=== PATIENT | female | born 1975 | race Caucasian/White ===

== ENCOUNTER 2020-08-14 20:55 | Inpatient (IN) ==
[2020-08-14] MEDS ORDERED: IOPAMIDOL 100 ML BOTTLE IV ONE (20:56)
[2020-08-14] MEDS ORDERED: 0.9 % SODIUM CHLORIDE 1,000 ML IV ONE (21:10)
[2020-08-14] MEDS ORDERED: ONDANSETRON 4 MG/2 ML VIAL IV ONE (21:10)
[2020-08-14] MEDS ORDERED: HYDROmorphone 0.5 MG/0.5 ML SYRINGE IV PRN (21:10)
--- NOTE | 2020-08-14 21:20 | Emergency Department Note ---
Abdominal Pain HPI General Chief Complaint: Abdominal Pain Stated Complaint: abdominal pain and coughing up blood Time Seen by Provider: 08/14/20 21:00 Mode of arrival: ambulatory Limitations: no limitations History of Present Illness HPI Narrative: Narrative: Patient is a 45-year-old female that comes into the emergency department today w ith complaint of feeling shortness of breath and coughing small amounts of blood-tinged sputum. She recently had laparoscopic cholecystectomy 2 days ago here at [facility]. She was discharged home yesterday, and reports that she has been feeling dizzy since the surgery, plugged ears, and has had abdominal pains. She is eating a clear liquid diet, but reports her appetite is decreased. She is drinking fluids. She has not had any nausea or vomiting. She denies any melena or hematochezia. She has not had a bowel movement in 2 days. She has not had any fevers or chills. She has not noticed any chest pains. Related Data Home Medications Medication Instructions Recorded Confirmed buspirone 5 mg PO DAILY 02/19/19 08/12/20 clonidine HCl 0.2 mg PO BID 02/19/19 08/12/20 sertraline 200 mg PO HS 02/19/19 08/12/20 aripiprazole 5 mg PO DAILY 10/31/19 08/12/20 estradiol 0.2 mg PO DAILY 08/12/20 08/12/20 omeprazole 20 mg capsule,delayed 20 mg PO QDAY cap 08/12/20 08/12/20 release ondansetron 4 mg PO Q4HP PRN 08/12/20 08/12/20 Previous Rx's Medication Instructions Recorded fexofenadine 180 mg PO DAILYP PRN #30 tab 10/31/19 acetaminophen [Tylenol] 650 mg PO Q6HP #30 tab 08/13/20 oxycodone 5 - 10 mg PO Q4HP PRN #15 tab 08/13/20 Allergies Allergy/AdvReac Type Severity Reaction Status Date / Time No Known Drug Allergies Allergy Verified 08/12/20 19:13 Review of Systems ROS ROS Narrative: Narrative: Constitutional: Denies fever and chills Eyes: Denies vision change ENT ED: Denies ear pain and throat pain Cardiovascular: Reports dyspnea on exertion; Denies chest pain, palpitations, edema and syncope Respiratory: Reports as per HPI, shortness of breath, cough and hemoptysis; Denies wheezes Gastrointestinal: Reports as per HPI, abdominal pain and constipation; Denies nausea, vomiting, hematochezia and melena Genitourinary: Denies dysuria and frequency Musculoskeletal: Denies back pain and joint swelling Integumentary: Denies rash, lesions and change in color Neurological: Reports dizziness; Denies headache, weakness, numbness, paresthesias and confusion Psychiatric: Denies anxiety and depression Endocrine: Denies fatigue and heat or cold intolerance Hematological/Lymphatic: Denies easy bleeding and easy bruising PFSH Narrative Patient History Narrative: Narrative: Medical/Surgical/Family History All Active Problems (Updated 08/12/20 @ 11:09 by Garth Tyson PA-C) Acute cholecystitis due to biliary calculus (Acute) Chronic pain (Acute) Lumbar radiculopathy (Acute) Acute sinusitis (Acute) Medication side effects (Acute) Acute anxiety (Acute) Joint pain (Acute) Nausea & vomiting (Acute) Otitis external (Acute) Upper respiratory infection (Acute) Migraine (Acute) Suicidal ideation (Acute) Serous otitis media (Acute) Gastroenteritis (Acute) Abdominal pain (Acute) Cholelithiasis (Acute) Medical History (Updated 08/12/20 @ 11:09 by Garth Tyson PA-C) Acute sinusitis (Acute) Chronic pain (Acute) Lumbar radiculopathy (Acute) Surgical History History of back surgery (Acute) 2015 History of (Acute) x2 History of carpal tunnel release (Acute) Left History of dilation and curettage (Acute) x3 History of elbow surgery (Acute) Left History of hysterectomy (Acute) History of surgery (Acute) Eustachian Tube placement x 10 History of tonsillectomy (Acute) Family History Mother Diabetes Hypertension Grandmother Diabetes Hypertension Aunt Diabetes Grandfather Heart disease Lung cancer Hypertension Father Heart disease Hypertension Social History Smoking Status: Never smoker Alcohol Intake Frequency: holiday/special occasion only Exam Narrative Narrative: Narrative: General Limitations: no limitations General appearance: Present alert and in no apparent distress Eye Eye: Present normal appearance, PERRL and EOMI; Absent scleral icterus, con junctival injection and nystagmus ENT ENT: Present normal oropharynx and mucous membranes moist; Absent nasal congestion Neck Neck: Present normal inspection, full ROM and trachea midline; Absent tenderness , lymphadenopathy and thyromegaly Chest Chest: Present symmetric chest wall rise Respiratory Respiratory: Present normal lung sounds bilaterally; Absent respiratory distress, rales/crackles, wheezes, stridor, accessory muscle use and prolonged expiratory phase Cardiovascular Cardiovascular: Present normal rhythm, tachycardia, +S1 and +S2; Absent systolic murmur and diastolic murmur Adbominal Abdominal: Present soft, tenderness (Mild diffuse abdominal tenderness), hypoactive bowel sounds and other (4 laparoscopic surgical sites are covered with gauze dressing. Gauze dressings are dry and intact.); Absent distention, rebound and rigidity Extremities Extremities: Present normal inspection, full ROM and normal capillary refill; Absent pedal edema, calf tenderness, cyanosis and clubbing Back Back: Present normal inspection and full ROM; Absent CVA tenderness (R), CVA tenderness (L) and spinous process tenderness Neurological Neurological: Present alert, oriented X3 and CN II-XII intact; Absent motor sensory deficit Psychiatric Psychiatric: Present normal affect and normal mood Skin Skin: Present warm, dry and normal color Course Reevaluation(s) Reevaluation #1: 2128 - Patient was hypoxic with oxygen saturation 70% on room air. She is currently receiving 2 L of O2 via nasal cannula, and oxygen saturation 96%. Patient is tachycardic. Currently proceeded with a CT angiogram of chest. Ordered 1 L normal saline. Dilaudid for pain management and ondansetron for nausea. Currently awaiting labs and CT results. 2156 -patient currently sitting in room T3. She is in no distress. Receiving 1 L normal saline IV. Currently awaiting labs results as well as CTA of chest. Patient currently has 2 L of O2 via nasal cannula and oxygen saturation is 97%. Report given to attending ED physician today, Dr. Barragan. Dr. Barragan will assume care at 2200 due to shift change. Vital Signs Vital signs: Vital Signs Temperature 99.0 F 08/14/20 20:56 Pulse Rate 101 H 08/14/20 20:56 Respiratory Rate 18 08/14/20 20:56 Blood Pressure 122/86 08/14/20 20:56 Pulse Oximetry (%) 78 L 08/14/20 20:56 Temperature 99.0 F 08/14/20 20:56 Pulse Rate 100 H 08/14/20 21:04 Respiratory Rate 18 08/14/20 20:56 Blood Pressure 122/86 08/14/20 21:04 Pulse Oximetry (%) 94 08/14/20 21:04 MDM MDM Narrative Medical decision making narrative: Narrative: Lab Data Result diagrams: 08/14/20 21:20 08/14/20 21:20 EKG Data EKG #1: EKG attestation: Yes I reviewed and interpreted this EKG. and Yes There are no EKG findings of acute coronary syndrome EKG shows normal: sinus rhythm Rate: normal Discharge Plan Patient/Caregiver Discharge Instructions Pt seen by SLIP BOX CHANGER/PA only: No Patient Disposition: Still a Patient Follow up with: Jo-Ann Lin ARNP [Primary Care Provider] - Prescriptions: No Action omeprazole 20 mg capsule,delayed release(DR/EC) 20 mg PO QDAY RF: 0 buspirone 5 MG tablet 5 mg PO DAILY RF: 0 clonidine HCl 0.2 MG tablet 0.2 mg PO BID RF: 0 sertraline 50 MG tablet 200 mg PO HS RF: 0 aripiprazole 5 MG tablet 5 mg PO DAILY RF: 0 fexofenadine 180 MG tablet 180 mg PO DAILYP PRN (Reason: Congestion) Qty: 30 RF: 0 estradiol 0.2 mg PO DAILY RF: 0 ondansetron 4 mg tablet,disintegrating 4 mg PO Q4HP PRN (Reason: Nausea) RF: 0 acetaminophen [Tylenol] 325 mg Tablet 650 mg PO Q6HP Qty: 30 RF: 0 oxycodone 5 mg Tablet 5 - 10 mg PO Q4HP PRN (Reason: Per Pain Protocol) Qty: 15 RF: 0
--- NOTE | 2020-08-14 22:08 | Emergency Department Note ---
HPI General Chief complaint: Abdominal Pain Stated complaint: abdominal pain and coughing up blood Time Seen by Provider: 08/14/20 21:00 Source: patient Mode of arrival: ambulatory Limitations: no limitations History of Present Illness HPI Narrative: Narrative: Related Data Home Medications Medication Instructions Recorded Confirmed buspirone 5 mg PO DAILY 02/19/19 08/12/20 clonidine HCl 0.2 mg PO BID 02/19/19 08/12/20 sertraline 200 mg PO HS 02/19/19 08/12/20 aripiprazole 5 mg PO DAILY 10/31/19 08/12/20 estradiol 0.2 mg PO DAILY 08/12/20 08/12/20 omeprazole 20 mg capsule,delayed 20 mg PO QDAY cap 08/12/20 08/12/20 release ondansetron 4 mg PO Q4HP PRN 08/12/20 08/12/20 Previous Rx's Medication Instructions Recorded fexofenadine 180 mg PO DAILYP PRN #30 tab 10/31/19 acetaminophen [Tylenol] 650 mg PO Q6HP #30 tab 08/13/20 oxycodone 5 - 10 mg PO Q4HP PRN #15 tab 08/13/20 Allergies Allergy/AdvReac Type Severity Reaction Status Date / Time No Known Drug Allergies Allergy Verified 08/12/20 19:13 Review of Systems ROS ROS Narrative: Narrative: Cardiovascular: Reports dyspnea on exertion; Denies chest pain, palpitations, edema and syncope Respiratory: Reports as per HPI, shortness of breath, cough and hemoptysis; Denies wheezes Gastrointestinal: Reports as per HPI, abdominal pain and constipation; Denies nausea, vomiting, hematochezia and melena Neurological: Reports dizziness; Denies headache, weakness, numbness, paresthesias and confusion [facility] Narrative Patient History Narrative: Narrative: Medical/Surgical/Family History All Active Problems (Updated 08/15/20 @ 02:07 by Hemanth Barragan MD) Pneumonia (Acute) Hypoxia (Acute) Acute cholecystitis due to biliary calculus (Acute) Chronic pain (Acute) Lumbar radiculopathy (Acute) Acute sinusitis (Acute) Medication side effects (Acute) Acute anxiety (Acute) Joint pain (Acute) Nausea & vomiting (Acute) Otitis external (Acute) Upper respiratory infection (Acute) Migraine (Acute) Suicidal ideation (Acute) Serous otitis media (Acute) Gastroenteritis (Acute) Abdominal pain (Acute) Cholelithiasis (Acute) Medical History (Updated 08/15/20 @ 02:07 by Hemanth Barragan MD) Acute sinusitis (Acute) Chronic pain (Acute) Lumbar radiculopathy (Acute) Surgical History History of back surgery (Acute) 2015 History of (Acute) x2 History of carpal tunnel release (Acute) Left History of dilation and curettage (Acute) x3 History of elbow surgery (Acute) Left History of hysterectomy (Acute) History of surgery (Acute) Eustachian Tube placement x 10 History of tonsillectomy (Acute) Family History Mother Diabetes Hypertension Grandmother Diabetes Hypertension Aunt Diabetes Grandfather Heart disease Lung cancer Hypertension Father Heart disease Hypertension Social History Smoking Status: Never smoker Alcohol Intake Frequency: holiday/special occasion only Exam Narrative Narrative: Narrative: General Limitations: no limitations General appearance: Present alert and in no apparent distress Course Reevaluation(s) Reevaluation #1: The patient is inherited at change of shift with labs and imaging pending. In short, recent cholecystectomy now coming in with upper abdominal pain, hemoptysis, and hypoxia. CT to rule out PE as well as other appropriate labs. And this vital signs normalized, patient most likely will need to be admitted. Pneumonia is also in the differential. Severe atelectasis is considered Time: 22:07 Reevaluation #2: With all the results back, I spoke to the hospitalist, Dr. Pond. He says he prefers to give the patient cefepime and vancomycin but agreed to admit. Time: 02:06 Vital Signs Vital signs: Vital Signs Temperature 99.0 F 08/14/20 20:56 Pulse Rate 101 H 08/14/20 20:56 Respiratory Rate 18 08/14/20 20:56 Blood Pressure 122/86 08/14/20 20:56 Pulse Oximetry (%) 78 L 08/14/20 20:56 Temperature 100.7 F H 08/15/20 01:55 Pulse Rate 100 H 08/15/20 01:46 Respiratory Rate 18 08/14/20 20:56 Blood Pressure 160/98 08/15/20 01:46 Pulse Oximetry (%) 92 08/15/20 01:46 MDM MDM Narrative Medical decision making narrative: Narrative: Lab Data Result diagrams: 08/14/20 21:20 08/14/20 21:20 Labs: Lab Results 08/14/20 08/14/20 08/14/20 Range/Units 21:20 21:20 21:20 WBC 11.5 H (4.50-11.00) K/mcL RBC 3.92 (3.59-5.38) M/mcL Hgb 9.6 L (11.2-15.7) g/dL Hct 31.9 L (34.1-44.9) % MCV 81.4 (80.0-100.0) fL MCH 24.5 L (26.0-34.0) pg MCHC 30.1 L (31.0-36.0) g/dL RDW 14.3 (11.5-14.5) % Plt Count 299 (140-440) K/mcL MPV 9.8 (7.4-10.4) fL Gran % 73.5 (38.0-78.0) % Lymph % (Auto) 18.6 (15.5-49.0) % Dane % (Auto) 7.8 (1.0-12.0) % Eos % (Auto) 0 (0.0-7.0) % Baso % (Auto) 0.1 (0.0-2.0) % Gran # 8.44 H (1.80-8.00) K/mcL Lymph # (Auto) 2.13 (1.50-4.80) K/mcL Dane # (Auto) 0.89 (0.10-0.90) K/mcL Eos # (Auto) 0 (0.00-0.70) K/mcL Baso # (Auto) 0.01 (0.00-0.30) K/mcL VBG Lactic Acid 1.1 (0.5-2.0) mmol/L Sodium 135 (133-145) mmol/L Potassium 4.6 (3.3-5.1) mmol/L Chloride 93 L (96-108) mmol/L Carbon Dioxide 30 (22-30) mmol/L Anion Gap 12.0 (8-16) BUN 22 H (6-20) mg/dl Creatinine 1.0 (0.6-1.1) mg/dl GFR Calculation 67 Glucose 128 H (70-105) mg/dL Calcium 8.5 L (8.6-10.4) mg/dl Total Bilirubin 0.3 (0.0-1.0) mg/dL AST 38 H (0-37) U/l ALT 50 H (0-40) U/l Alkaline Phosphatase 87 (39-117) U/L Total Protein 7.2 (5.9-8.4) gm/dL Albumin 3.9 (3.2-5.2) gm/dL Globulin 3.3 (2.2-3.7) gm/dL Albumin/Globulin Ratio 1.2 (1.0-2.3) Discharge Plan Patient/Caregiver Discharge Instructions Pt seen by YOUTH SERVICES SPECIALIST/PA only: No Clinical Impression: Pneumonia, Hypoxia Patient Disposition: Xfer As Inpt ([facility]) Follow up with: Jo-Ann Lin ARNP [Primary Care Provider] - Prescriptions: No Action omeprazole 20 mg capsule,delayed release(DR/EC) 20 mg PO QDAY RF: 0 buspirone 5 MG tablet 5 mg PO DAILY RF: 0 clonidine HCl 0.2 MG tablet 0.2 mg PO BID RF: 0 sertraline 50 MG tablet 200 mg PO HS RF: 0 aripiprazole 5 MG tablet 5 mg PO DAILY RF: 0 fexofenadine 180 MG tablet 180 mg PO DAILYP PRN (Reason: Congestion) Qty: 30 RF: 0 estradiol 0.2 mg PO DAILY RF: 0 ondansetron 4 mg tablet,disintegrating 4 mg PO Q4HP PRN (Reason: Nausea) RF: 0 acetaminophen [Tylenol] 325 mg Tablet 650 mg PO Q6HP Qty: 30 RF: 0 oxycodone 5 mg Tablet 5 - 10 mg PO Q4HP PRN (Reason: Per Pain Protocol) Qty: 15 RF: 0
[2020-08-14 22:44] LABS: Basophils # (Auto) 0.01 K/mcL (0.00-0.30); Basophils % (Auto) 0.1 % (0.0-2.0); Eosinophils # (Auto) 0 K/mcL (0.00-0.70); Eosinophils % (Auto) 0 % (0.0-7.0); Granulocytes % (Auto) 73.5 % (38.0-78.0); Hematocrit 31.9 % (34.1-44.9); Hemoglobin 9.6 g/dL (11.2-15.7); Lymphocytes # (Auto) 2.13 K/mcL (1.50-4.80); Lymphocytes % (Auto) 18.6 % (15.5-49.0); Mean Cell Volume 81.4 fL (80.0-100.0); Mean Corpuscular HGB Conc 30.1 g/dL (31.0-36.0); Mean Platelet Volume 9.8 fL (7.4-10.4); Monocytes # (Auto) 0.89 K/mcL (0.10-0.90); Monocytes % (Auto) 7.8 % (1.0-12.0); Platelet Count 299 K/mcL (140-440); RBC 3.92 M/mcL (3.59-5.38); Red Cell Distribution Width 14.3 % (11.5-14.5); WBC 11.5 K/mcL (4.50-11.00)
[2020-08-14 23:03] LABS: ALT/SGPT 50 U/l (0-40); AST/SGOT 38 U/l (0-37); Albumin 3.9 gm/dL (3.2-5.2); Albumin/Globulin Ratio 1.2 (1.0-2.3); Alkaline Phosphatase 87 U/L (39-117); Bilirubin,Total 0.3 mg/dL (0.0-1.0); Blood Urea Nitrogen 22 mg/dl (6-20); Calcium 8.5 mg/dl (8.6-10.4); Carbon Dioxide 30 mmol/L (22-30); Globulin 3.3 gm/dL (2.2-3.7); Glomerular Filtration Rate 67; Glucose 128 mg/dL (70-105)
[2020-08-14 23:13] LABS: Chloride 93 mmol/L (96-108)
[2020-08-15] MEDS ORDERED: NALOXONE HCL 0.4 MG/ML VIAL IV ONE (00:07)
[2020-08-15] MEDS ORDERED: VANCOMYCIN PER PHARMACY IV ONE (02:04)
[2020-08-15] MEDS ORDERED: CEFEPIME 2 GM VIAL IV ONE (02:04)
[2020-08-15] MEDS ORDERED: ACETAMINOPHEN 325 MG TABLET PO PRN ×2 (02:08→08:19)
[2020-08-15] MEDS ORDERED: ONDANSETRON 4 MG/2 ML VIAL IV PRN ×3 (02:08→08:19)
[2020-08-15] MEDS ORDERED: VANCOMYCIN 1,000 MG in 0.9 % SODIUM CHLORIDE 250 ML IV ONE (02:13)
[2020-08-15] MEDS ORDERED: 0.9 % SODIUM CHLORIDE 1,000 ML IV SCH (02:15)
[2020-08-15] MEDS ORDERED: VANCOMYCIN PER PHARMACY IV SCH ×2 (08:06→08:19)
[2020-08-15] MEDS ORDERED: FEXOFENADINE 180 MG TABLET PO PRN ×2 (08:07→08:19)
[2020-08-15] MEDS ORDERED: oxyCODONE HCL 5 MG TABLET PO PRN ×2 (08:07→08:19)
[2020-08-15] MEDS ORDERED: guaiFENesin/DEXTROMETHORPHAN ORAL SOL PO PRN ×2 (08:08→08:19)
--- NOTE | 2020-08-15 08:29 | Internal Med History&Physical ---
HPI History of Present Illness Patient information: Note initiated : 08/15/20 at 8:13 am Service Date, if different from initiated Date: [] Patient: Nicole Lipscomb 45 y/o F admitted on 08/15/20 for abdominal pain and coughing up blood. Chief Complaint: [] History of present illness: Ms. Lipscomb is a 45 year old F with a history of hypertension and anxiety who presented to the ER due to shortness of breath for 2 to 3 days. As per patient, patient had a cholecystitis for which she underwent cholecystectomy on August 12, 2020. She stayed in the hospital for 3 days and then was discharged home. 2 to 3 days ago patient started to have shortness of breath associated with cough with some amount of sputum. She does not know the color of the sputum but she noticed some blood in the sputum. She also complains of mild nausea, fever and chills sometimes. Otherwise she denies headache, dizziness, chest pain, abdominal pain, or dysuria. In the ER, imaging showed pneumonia. 1 dose of cefepime and vancomycin were given in the ER. Review of Systems All systems: reviewed and no additional remarkable complaints except as stated PFSH PFSH All Active Problems Pneumonia (Acute) Hypoxia (Acute) Acute cholecystitis due to biliary calculus (Acute) Chronic pain (Acute) Lumbar radiculopathy (Acute) Acute sinusitis (Acute) Medication side effects (Acute) Acute anxiety (Acute) Joint pain (Acute) Nausea & vomiting (Acute) Otitis external (Acute) Upper respiratory infection (Acute) Migraine (Acute) Suicidal ideation (Acute) Serous otitis media (Acute) Gastroenteritis (Acute) Abdominal pain (Acute) Cholelithiasis (Acute) Medical History Acute sinusitis (Acute) Chronic pain (Acute) Lumbar radiculopathy (Acute) Surgical History History of back surgery (Acute) 2014 History of (Acute) x2 History of carpal tunnel release (Acute) Left History of dilation and curettage (Acute) x3 History of elbow surgery (Acute) Left History of hysterectomy (Acute) History of surgery (Acute) Eustachian Tube placement x 10 History of tonsillectomy (Acute) Family History Mother Diabetes Hypertension Grandmother Diabetes Hypertension Aunt Diabetes Grandfather Heart disease Lung cancer Hypertension Father Heart disease Hypertension Social History smoking status: Never smoker alcohol intake frequency: holiday/special occasion only MEDS/ALLERGIES Home Medications and Allergies Home Medications Medication Instructions Recorded Confirmed Type buspirone 5 mg PO DAILY 02/19/19 08/15/20 History clonidine HCl 0.2 mg PO BID 02/19/19 08/15/20 History aripiprazole 5 mg PO DAILY 10/31/19 08/15/20 History fexofenadine 180 mg PO DAILYP PRN #30 tab 10/31/19 08/15/20 Rx estradiol 0.2 mg PO DAILY 08/12/20 08/15/20 History omeprazole 20 mg capsule,delayed 20 mg PO QDAY cap 08/12/20 08/15/20 History release ondansetron 4 mg PO Q4HP PRN 08/12/20 08/15/20 History acetaminophen [Tylenol] 650 mg PO Q6HP #30 tab 08/13/20 08/15/20 Rx oxycodone 5 - 10 mg PO Q4HP PRN #15 tab 08/13/20 08/15/20 Rx Allergies Allergy/AdvReac Type Severity Reaction Status Date / Time No Known Drug Allergies Allergy Verified 08/12/20 19:13 EXAM Constitutional Vitals: Temp Pulse Resp BP Pulse Ox 98.7 F 103 H 22 151/97 97 08/15/20 07:25 08/15/20 07:25 08/15/20 07:25 08/15/20 07:25 08/15/20 07:25 Additional findings Additional findings: General - No acute distress Eyes - PERRLA, EOM intact ENT no rhinorrhea, no noticeable or palpable swelling, no redness or rash around throat or on face Neck supple, no JVD, no thyromegaly Respiratory: Lungs -coarse BS, no use of accessary muscles. Cardiovascular - RRR no m/r/g, GI - Normal bowel sounds, no distended, soft. Extremeties - No edema, cyanosis or clubbing Hemo/lymphatic/immune no lymphadenopathy Neurological Alert and oriented x 3, no focal neurological deficits. Psychiatry flat affect DATA Data Completed and Pending Labs: Labs from last 24 hours 08/14/20 08/14/20 08/14/20 21:20 21:20 21:20 WBC 11.5 H RBC 3.92 Hgb 9.6 L Hct 31.9 L MCV 81.4 MCH 24.5 L MCHC 30.1 L RDW 14.3 Plt Count 299 MPV 9.8 Gran % 73.5 Lymph % (Auto) 18.6 [place]erry % (Auto) 7.8 Eos % (Auto) 0 Baso % (Auto) 0.1 Gran # 8.44 H Lymph # (Auto) 2.13 [place] # (Auto) 0.89 Eos # (Auto) 0 Baso # (Auto) 0.01 VBG Lactic Acid 1.1 Sodium 135 Potassium 4.6 Chloride 93 L Carbon Dioxide 30 Anion Gap 12.0 BUN 22 H Creatinine 1.0 GFR Calculation 67 Glucose 128 H Calcium 8.5 L Total Bilirubin 0.3 AST 38 H ALT 50 H Alkaline Phosphatase 87 Total Protein 7.2 Albumin 3.9 Globulin 3.3 Albumin/Globulin Ratio 1.2 A/P Narrative A/P Narrative: 1. Acute hypoxic respiratory failure Pulse ox Oxygen therapy to keep oxygen saturations greater than 92%. 2. Pneumonia, HCA? CT of the chest showed pneumonia and negative for PE Last week she was hospitalized in the hospital for cholecystitis and stayed in the hospital for 3 days. Blood culture Sputum culture MRSA screen COVID-19 PCR negative Cefepime 2 g every 8 hours Vancomycin, dosing by pharmacy 3. Acute cholecystitis, s/p Laparoscopic cholecystectomy by Dr. Choi on 08/12/2020 Surgical site no infection sign 4. Elevation of liver enzymes Could result from previous cholecystitis and cholecystectomy Repeat her liver function in morning 5. HTN Continue clonidine 6. Anxiety Continue aripirazole 5 mg daily, bisoprolol 5 mg daily, clonidine 0.2 mg twice daily, fexofenadine 180 mg daily as needed and oxycodone (she is on 5 to 10 mg of every 4 hours as needed. I decreased it to 5 mg every 6 hours as needed). I feel that medications are too much but patient would like to have them. closely monitor 7. DVT prophylaxis: SCD. No pharmacological DVT prophylaxis now due to hemoptysis. 8. CODE STATUS: [employer] Spent With Patient Time: Total time spent is greater than 50% in coordination of care (as documented) at patient's floor/unit and/or counseling patient: QUALITY VTE Deep Vein Thrombosis/Pulmonary Embolism Present on Admission: No
[2020-08-15] MEDS ORDERED: CEFEPIME 2 GM VIAL IV SCH ×2 (09:00)
[2020-08-15] MEDS ORDERED: ESTRADIOL PO SCH (09:00)
[2020-08-15] MEDS ORDERED: VANCOMYCIN 500 MG in 0.9 % SODIUM CHLORIDE 100 ML IV ONE (09:00)
[2020-08-15] MEDS ORDERED: OMEPRAZOLE 20 MG CAPSULE PO SCH (09:00)
[2020-08-15] MEDS ORDERED: busPIRone 5 MG TABLET PO SCH (09:00)
[2020-08-15] MEDS ORDERED: ARIPIPRAZOLE 5 MG TABLET PO SCH (09:00)
[2020-08-15] MEDS ORDERED: DOCUSATE SODIUM 100 MG CAPSULE PO SCH (09:00)
[2020-08-15] MEDS ORDERED: FAMOTIDINE 20 MG TABLET PO SCH (09:00)
[2020-08-15] MEDS ORDERED: ENOXAPARIN 40 MG/0.4 ML SYRINGE SQ SCH (09:00)
[2020-08-15] MEDS ORDERED: cloNIDine HCL 0.1 MG TABLET PO SCH (09:00)
[2020-08-15] MEDS: busPIRone 5 MG TABLET PO SCH ×2 (09:28→12:26)
[2020-08-15] MEDS: ARIPIPRAZOLE 5 MG TABLET PO SCH (09:28)
[2020-08-15] MEDS: cloNIDine HCL 0.1 MG TABLET PO SCH ×3 (09:28→21:43)
[2020-08-15] MEDS: OMEPRAZOLE 20 MG CAPSULE PO SCH ×2 (09:28→12:27)
[2020-08-15] MEDS: DOCUSATE SODIUM 100 MG CAPSULE PO SCH ×3 (09:28→21:30)
--- NOTE | 2020-08-15 10:36 | Cat Scan Report ---
History: Hypoxia, hemoptysis, post cholecystectomy on 08/12/20 TECHNIQUE: Following injection of intravenous nonionic contrast, arterial phase images were acquired. Sagittal, coronal and axial MIPS images were created. The radiation exposure was limited using dose reduction technology. FINDINGS: The pulmonary arteries are normal without evidence of emboli. The aorta is normal in caliber and there is minimal plaque formation. The heart is normal in size and contour and there is no plaque formation or pericardial effusion. There is a random distribution of patchy groundglass alveolar infiltrates in both lungs. The greatest involvement is essentially in the left upper lobe and in the superior segments of lower lobes. Small right-sided pleural effusion is present. Contiguous with pleural fluid there is mild atelectasis in the basilar segments of the right lower lobe area no left-sided effusion is present. There are no abnormally enlarged lymph nodes. There is some free air in the right upper quadrant and gas in the del hepatis following the recent cholecystectomy. There is no evidence of bile leak or hematoma at that site. Patient does have fatty infiltration liver. An upper pole calyx of the right kidney a nonobstructing 5 x 12 mm stone is present. It has a density of 525 Hounsfield units. Graft impression: No evidence of pulmonary emboli IMPRESSION: Bilateral groundglass pulmonary infiltrates.. This may be seen with pulmonary edema. However, the patient does not have cardiomegaly or atherosclerotic coronary artery disease. Infection including Coronavirus, pneumocystis and other viruses may create this appearance. A hypersensitivity pneumonitis, drug reaction and ARDS are also considerations. No evidence of pulmonary emboli Interpreted and Authenticated by: Cheo Martinez 08/15/20
[2020-08-15 10:58] LABS: Hemoglobin A1C 5.9 % HGB (4.0-6.0)
[2020-08-15] MEDS ORDERED: IPRATROPIUM/ALBUTEROL 3 ML AMPUL.NEB NEB SCH (11:00)
[2020-08-15] MEDS: IPRATROPIUM/ALBUTEROL 3 ML AMPUL.NEB NEB SCH ×4 (11:09→22:54)
[2020-08-15] MEDS ORDERED: 0.9 % SODIUM CHLORIDE 10 ML SYRINGE IV SCH (14:00)
[2020-08-15] MEDS: 0.9 % SODIUM CHLORIDE 10 ML SYRINGE IV SCH ×2 (14:40→21:44)
[2020-08-15] MEDS: CEFEPIME 2 GM VIAL IV SCH ×2 (14:47→21:30)
[2020-08-15] MEDS: 0.9 % SODIUM CHLORIDE 1,000 ML IV SCH ×3 (18:49→22:36)
[2020-08-15] MEDS ORDERED: VANCOMYCIN 1,500 MG in 0.9 % SODIUM CHLORIDE 500 ML IV SCH (21:00)
[2020-08-15] MEDS: VANCOMYCIN 1,500 MG in 0.9 % SODIUM CHLORIDE 500 ML IV SCH (21:30)
[2020-08-16] MEDS: IPRATROPIUM/ALBUTEROL 3 ML AMPUL.NEB NEB SCH ×2 (03:11→06:57)
[2020-08-16] MEDS: CEFEPIME 2 GM VIAL IV SCH ×3 (05:56→22:20)
[2020-08-16] MEDS: 0.9 % SODIUM CHLORIDE 10 ML SYRINGE IV SCH ×3 (05:56→20:15)
[2020-08-16 06:32] LABS: Basophils # (Auto) 0.02 K/mcL (0.00-0.30); Basophils % (Auto) 0.2 % (0.0-2.0); Eosinophils # (Auto) 0.01 K/mcL (0.00-0.70); Eosinophils % (Auto) 0.1 % (0.0-7.0); Granulocytes % (Auto) 80.3 % (38.0-78.0); Hematocrit 30.9 % (34.1-44.9); Hemoglobin 9.3 g/dL (11.2-15.7); Lymphocytes # (Auto) 1.43 K/mcL (1.50-4.80); Lymphocytes % (Auto) 12.5 % (15.5-49.0); Mean Cell Volume 80.9 fL (80.0-100.0); Mean Corpuscular HGB Conc 30.1 g/dL (31.0-36.0); Mean Platelet Volume 9.7 fL (7.4-10.4); Monocytes # (Auto) 0.79 K/mcL (0.10-0.90); Monocytes % (Auto) 6.9 % (1.0-12.0); Platelet Count 252 K/mcL (140-440); RBC 3.82 M/mcL (3.59-5.38); Red Cell Distribution Width 13.7 % (11.5-14.5); WBC 11.5 K/mcL (4.50-11.00)
[2020-08-16 07:11] LABS: ALT/SGPT 35 U/l (0-40); AST/SGOT 23 U/l (0-37); Albumin 3.2 gm/dL (3.2-5.2); Alkaline Phosphatase 98 U/L (39-117); Bilirubin,Total 0.6 mg/dL (0.0-1.0); Blood Urea Nitrogen 11 mg/dl (6-20); Calcium 8.7 mg/dl (8.6-10.4); Carbon Dioxide 29 mmol/L (22-30); Chloride 97 mmol/L (96-108); Globulin 3.3 gm/dL (2.2-3.7); Glomerular Filtration Rate 109; Glucose 112 mg/dL (70-105)
[2020-08-16] MEDS ORDERED: IPRATROPIUM/ALBUTEROL 3 ML AMPUL.NEB NEB PRN ×2 (08:24→12:52)
[2020-08-16] MEDS: cloNIDine HCL 0.1 MG TABLET PO SCH ×2 (08:57→20:14)
[2020-08-16] MEDS: ARIPIPRAZOLE 5 MG TABLET PO SCH (08:57)
[2020-08-16] MEDS: busPIRone 5 MG TABLET PO SCH (08:57)
[2020-08-16] MEDS: OMEPRAZOLE 20 MG CAPSULE PO SCH (08:58)
[2020-08-16] MEDS: DOCUSATE SODIUM 100 MG CAPSULE PO SCH ×2 (08:58→20:14)
[2020-08-16] MEDS ORDERED: ESTRADIOL 1 MG TABLET PO SCH (09:00)
[2020-08-16] MEDS ORDERED: oxyCODONE HCL 5 MG TABLET PO PRN ×3 (09:15→12:52)
[2020-08-16] MEDS: 0.9 % SODIUM CHLORIDE 1,000 ML IV SCH ×2 (10:48→13:45)
[2020-08-16] MEDS: VANCOMYCIN 1,500 MG in 0.9 % SODIUM CHLORIDE 500 ML IV SCH ×2 (10:52→20:12)
[2020-08-16] MEDS ORDERED: VANCOMYCIN PER PHARMACY IV SCH (12:52)
[2020-08-16] MEDS ORDERED: ONDANSETRON 4 MG/2 ML VIAL IV PRN (12:52)
[2020-08-16] MEDS ORDERED: ACETAMINOPHEN 325 MG TABLET PO PRN (12:52)
[2020-08-16] MEDS ORDERED: guaiFENesin/DEXTROMETHORPHAN ORAL SOL PO PRN (12:52)
--- NOTE | 2020-08-16 17:49 | Internal Med Progress Note ---
SUBJECTIVE Subjective Patient information: Note initiated : 08/16/20 at 5:46 pm Service Date, if different from initiated Date: [] Patient: Nicole Lipscomb 45 y/o F admitted on 08/15/20 for abdominal pain and coughing up blood. Chief Complaint: [] History of present illness: Ms. Lipscomb is a 45 year old F with a history of hypertension and anxiety who presented to the ER due to shortness of breath for 2 to 3 days. As per patient, patient had a cholecystitis for which she underwent cholecystectomy on August 12, 2020. She stayed in the hospital for 3 days and then was discharged home. 2 to 3 days ago patient started to have shortness of breath associated with cough with some amount of sputum. She does not know the color of the sputum but she noticed some blood in the sputum. She also complains of mild nausea, fever and chills sometimes. Otherwise she denies headache, dizziness, chest pain, abdominal pain, or dysuria. In the ER, imaging showed pneumonia. 1 dose of cefepime and vancomycin were given in the ER. 08/16 Patient is sleepy and lethargic. Denies headache, dizziness, fever or chills. Afebrile, oxygen saturation good on 2 L. WBC 11.5. Repeated COVID-19 negative Repeat blood culture Discontinued Buspirone. Change oxycodone to 5 mg every 8 hours as needed formal every 6 hours as needed. Upgraded to PCU. BNP 3824 -echocardiogram Review of Systems All systems: reviewed and no additional remarkable complaints except as stated Constitutional Vitals: Vital Signs Temp Pulse Resp BP Pulse Ox 98.3 F 88 16 115/77 94 08/16/20 16:01 08/16/20 07:36 08/16/20 12:54 08/16/20 17:01 08/16/20 17:01 Period Temp Pulse Resp BP Sys/Reddy Pulse Ox Last 24 Hr 98.3 F-99 F 88-95 14-20 101-137/68-95 91-99 Intake and Output 08/16/20 08/16/20 08/16/20 05:59 13:59 21:59 Intake Total 650 1740 Output Total 600 400 200 Balance 50 1340 -200 Weight 91.354 kg Patient Weight 08/17/20 05:59 Weight 91.354 kg Intake & Output: Intake & Output 08/16/20 08/16/20 08/16/20 05:59 13:59 21:59 Intake Total 650 1740 Output Total 600 400 200 Balance 50 1340 -200 Weight 91.354 kg Intake: IV 500 1500 Sodium Chloride 0.9% 1,000 ml @ 1000 75 mls/hr IV .[id number] [facility] Rx#: [id number] Vancomycin 1,500 mg In Sodium 500 500 Chloride 0.9% 500 ml @ 333.3 mls/hr IV Q12H [facility] Rx#: [id number] Oral 150 240 Output: Void Amount 600 400 200 Other: Meal Breakfast Percent of Meal Consumed 75% Feeding Ability Independent Urine Appearance Clear Clear Clear Urine Color Dark Yellow Dark Yellow Dark Yellow Urine Odor Normal Normal Strong Stool Size Large Stool Color Brown Stool Consistency Soft Formed # Bowel Movements 1 Additional findings Additional findings: General - sleepy/lethargic, no acute distress Eyes - PERRLA, EOM intact ENT no rhinorrhea, no noticeable or palpable swelling, no redness or rash around throat or on face Neck supple, no JVD, no thyromegaly Respiratory: Lungs -coarse BS, no use of accessary muscles. Cardiovascular - RRR no m/r/g, GI - Normal bowel sounds, no distended, soft. Extremeties - No edema, cyanosis or clubbing Hemo/lymphatic/immune no lymphadenopathy Neurological sleepy/lethargic, no focal neurological deficits. Psychiatry flat affect OBJ DATA Labs CBC & Chem 7: 08/16/20 05:35 08/16/20 05:35 Labs: Abnormal Lab Results 08/16/20 08/16/20 08/15/20 05:35 05:35 08:14 WBC 11.5 H Hgb 9.3 L Hct 30.9 L MCH 24.3 L MCHC 30.1 L Gran % 80.3 H Lymph % (Auto) 12.5 L Gran # 9.21 H Lymph # (Auto) 1.43 L Chloride BUN Glucose 112 H Calcium AST ALT NT-Pro-B Natriuret Pep 3824.0 H 08/14/20 08/14/20 21:20 21:20 WBC 11.5 H Hgb 9.6 L Hct 31.9 L MCH 24.5 L MCHC 30.1 L Gran % Lymph % (Auto) Gran # 8.44 H Lymph # (Auto) Chloride 93 L BUN 22 H Glucose 128 H Calcium 8.5 L AST 38 H ALT 50 H NT-Pro-B Natriuret Pep Meds: Medications Acetaminophen (Tylenol) 650 mg PO Q6HP PRN; Protocol PRN Reason: Per Pain Protocol/Fever > 101 Albuterol/Ipratropium (Duoneb) 3 ml NEB Q4HRT PRN PRN Reason: Shortness Of Breath Cefepime HCl (Maxipime) 2 gm IV Q8H [facility]; Protocol Last Admin: 08/16/20 14:00 Dose: 2 gm Documented by: Clonidine HCl (Catapres) 0.2 mg PO BID [facility] Docusate Sodium (Colace) 100 mg PO BID [facility] Estradiol (Estrace) 0.25 mg PO DAILY [facility] Guaifenesin (Robitussin Dm) 5 ml PO Q6HP PRN PRN Reason: Cough Sodium Chloride (Sodium Chloride 0.9%) 1,000 mls @ 75 mls/hr IV .[id number] [facility] Last Admin: 08/16/20 13:45 Dose: Not Given Documented by: Vancomycin HCl 1,500 mg/ (Sodium Chloride) 500 mls @ 333.3 mls/hr IV Q12H [facility] Omeprazole (Prilosec) 20 mg PO ACB [facility] Ondansetron HCl (Zofran) 4 mg IV Q6HP PRN PRN Reason: Nausea And Vomiting Oxycodone HCl (Roxicodone) 5 mg PO Q8HP PRN; Protocol PRN Reason: Per Pain Protocol Sodium Chloride (Saline Flush) 10 ml IV Q8 [facility] Last Admin: 08/16/20 14:01 Dose: 10 ml Documented by: Vancomycin HCl (Vancomycin Per Pharmacy) 1 order IV [facility]; Protocol A/P Narrative A/P Narrative: 1. Acute hypoxic respiratory failure Pulse ox Oxygen therapy to keep oxygen saturations greater than 92%. 2. Pneumonia, [facility]? CT of the chest showed pneumonia and negative for PE Last week she was hospitalized in the hospital for cholecystitis and stayed in the hospital for 3 days. Blood culture Sputum culture MRSA screen COVID-19 PCR negative Cefepime 2 g every 8 hours Vancomycin, dosing by pharmacy 3. Acute cholecystitis, s/p Laparoscopic cholecystectomy by Dr. Choi on 08/12/2020 Surgical site no infection sign 4. Elevation of liver enzymes Could result from previous cholecystitis and cholecystectomy Repeat her liver function in morning 5. HTN Continue clonidine 6. Anxiety Continue aripirazole 5 mg daily, bisoprolol 5 mg daily (discontinued), clonidine 0.2 mg twice daily, fexofenadine 180 mg daily as needed (discontinued) and oxycodone (she is on 5 to 10 mg of every 4 hours as needed. I decreased it to 5 mg every 8 hours as needed). I feel that medications are too much but patient would like to have them. closely monitor 7. DVT prophylaxis: SCD. No pharmacological DVT prophylaxis now due to hemoptysis. 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
[2020-08-17] MEDS: 0.9 % SODIUM CHLORIDE 1,000 ML IV SCH ×3 (03:31→18:40)
[2020-08-17] MEDS: CEFEPIME 2 GM VIAL IV SCH ×3 (05:34→22:47)
[2020-08-17] MEDS: 0.9 % SODIUM CHLORIDE 10 ML SYRINGE IV SCH ×3 (05:34→20:13)
[2020-08-17 06:35] LABS: Basophils # (Auto) 0.03 K/mcL (0.00-0.30); Basophils % (Auto) 0.4 % (0.0-2.0); Eosinophils # (Auto) 0.07 K/mcL (0.00-0.70); Eosinophils % (Auto) 0.9 % (0.0-7.0); Granulocytes % (Auto) 64.1 % (38.0-78.0); Hematocrit 29.7 % (34.1-44.9); Hemoglobin 8.9 g/dL (11.2-15.7); Lymphocytes # (Auto) 2.01 K/mcL (1.50-4.80); Lymphocytes % (Auto) 26.1 % (15.5-49.0); Mean Cell Volume 81.8 fL (80.0-100.0); Mean Platelet Volume 9.7 fL (7.4-10.4); Monocytes # (Auto) 0.65 K/mcL (0.10-0.90); Monocytes % (Auto) 8.5 % (1.0-12.0); Platelet Count 262 K/mcL (140-440); RBC 3.63 M/mcL (3.59-5.38); WBC 7.7 K/mcL (4.50-11.00)
[2020-08-17 06:53] LABS: ALT/SGPT 32 U/l (0-40); AST/SGOT 22 U/l (0-37); Albumin/Globulin Ratio 0.9 (1.0-2.3); Alkaline Phosphatase 94 U/L (39-117); Bilirubin,Total 0.6 mg/dL (0.0-1.0); Blood Urea Nitrogen 14 mg/dl (6-20); Calcium 8.3 mg/dl (8.6-10.4); Carbon Dioxide 28 mmol/L (22-30); Chloride 103 mmol/L (96-108); Globulin 3.2 gm/dL (2.2-3.7); Glomerular Filtration Rate 103; Glucose 100 mg/dL (70-105)
[2020-08-17] MEDS ORDERED: OMEPRAZOLE 20 MG CAPSULE PO SCH (07:30)
[2020-08-17] MEDS ORDERED: ARIPIPRAZOLE 5 MG TABLET PO SCH (09:00)
[2020-08-17] MEDS ORDERED: ESTRADIOL 1 MG TABLET PO SCH (09:00)
[2020-08-17] MEDS: cloNIDine HCL 0.1 MG TABLET PO SCH ×2 (09:32→21:05)
[2020-08-17] MEDS: DOCUSATE SODIUM 100 MG CAPSULE PO SCH ×2 (09:37→21:05)
[2020-08-17] MEDS: VANCOMYCIN 1,500 MG in 0.9 % SODIUM CHLORIDE 500 ML IV SCH ×2 (10:38→21:04)
[2020-08-17] MEDS ORDERED: VANCOMYCIN PER PHARMACY IV SCH (11:35)
[2020-08-17] MEDS ORDERED: oxyCODONE HCL 5 MG TABLET PO PRN (11:35)
[2020-08-17] MEDS ORDERED: IPRATROPIUM/ALBUTEROL 3 ML AMPUL.NEB NEB PRN (11:35)
[2020-08-17] MEDS ORDERED: ACETAMINOPHEN 325 MG TABLET PO PRN (11:35)
[2020-08-17] MEDS ORDERED: ONDANSETRON 4 MG/2 ML VIAL IV PRN (11:35)
[2020-08-17] MEDS ORDERED: guaiFENesin/DEXTROMETHORPHAN ORAL SOL PO PRN (11:35)
--- NOTE | 2020-08-17 12:11 | XRay Report ---
CLINICAL INFORMATION: Cough COMPARISON: 11/30/2005 FINDINGS: Heart size, mediastinum and pulmonary vessels are normal. Moderate infiltrate in the left perihilar region and smaller patchy infiltrate in the right suprahilar region and medial right base are appreciated. No effusion. Bones soft tissues normal. IMPRESSION: Moderate left perihilar and small right suprahilar small right basilar filtrates likely representing infection Interpreted and Authenticated by: Irwin Camacho 08/17/20
--- NOTE | 2020-08-17 23:45 | Internal Med Progress Note ---
SUBJECTIVE Subjective Patient information: Note initiated : 08/17/20 at 11:40 pm Service Date, if different from initiated Date: [] Patient: Nicole Lipscomb 45 y/o F admitted on 08/15/20 for abdominal pain and coughing up blood. Chief Complaint: [] History of present illness: Ms. Lipscomb is a 45 year old F with a history of hypertension and anxiety who presented to the ER due to shortness of breath for 2 to 3 days. As per patient, patient had a cholecystitis for which she underwent cholecystectomy on August 12, 2020. She stayed in the hospital for 3 days and then was discharged home. 2 to 3 days ago patient started to have shortness of breath associated with cough with some amount of sputum. She does not know the color of the sputum but she noticed some blood in the sputum. She also complains of mild nausea, fever and chills sometimes. Otherwise she denies headache, dizziness, chest pain, abdominal pain, or dysuria. In the ER, imaging showed pneumonia. 1 dose of cefepime and vancomycin were given in the ER. 08/16 Patient is sleepy and lethargic. Denies headache, dizziness, fever or chills. Afebrile, oxygen saturation good on 2 L. WBC 11.5. Repeated COVID-19 negative Repeat blood culture Discontinued Buspirone. Change oxycodone to 5 mg every 8 hours as needed formal every 6 hours as needed. Upgraded to PCU. BNP 3824 -echocardiogram 08/17 Today patient mental status significantly improved. When I saw this patient in her room, she was sitting on bed and can talk with me. I advised her not to take too much psych and pain medication in the future. She agreed with the advice. This morning she was 2 L oxygen. She is on room air this afternoon with good saturation. Review of Systems All systems: reviewed and no additional remarkable complaints except as stated Constitutional Vitals: Vital Signs Temp Pulse Resp BP Pulse Ox 98.0 F 73 16 125/64 95 08/17/20 20:03 08/17/20 20:03 08/17/20 21:19 08/17/20 20:03 08/17/20 21:19 Period Temp Pulse Resp BP Sys/Reddy Pulse Ox Last 24 Hr 97.5 F-98.0 F 67-77 14-25 98-131/59-78 93-100 Intake and Output 08/17/20 08/17/20 08/18/20 13:59 21:59 05:59 Intake Total 860 360 Output Total 375 Balance 485 360 Weight 91.852 kg Patient Weight 08/18/20 05:59 Weight 91.852 kg Intake & Output: Intake & Output 08/17/20 08/17/20 08/18/20 13:59 21:59 05:59 Intake Total 860 360 Output Total 375 Balance 485 360 Weight 91.852 kg Intake: IV 500 Vancomycin 1,500 mg In Sodium 500 Chloride 0.9% 500 ml @ 333.3 mls/hr IV Q12H [facility] Rx#: [id number] Oral 360 360 Output: Void Amount 375 Other: Meal Lunch Dinner Percent of Meal Consumed 25% 100% Feeding Ability Independent Urine Appearance Cloudy Urine Color Dark Monica Urine Odor Strong Stool Size Small Stool Color Yellow Stool Consistency Watery Loose # Voids 1 # Bowel Movements 1 # of times incontinent of 160 Bowels Additional findings Additional findings: General - sleepy/lethargic, no acute distress Eyes - PERRLA, EOM intact ENT no rhinorrhea, no noticeable or palpable swelling, no redness or rash around throat or on face Neck supple, no JVD, no thyromegaly Respiratory: Lungs -coarse BS, no use of accessary muscles. Cardiovascular - RRR no m/r/g, GI - Normal bowel sounds, no distended, soft. Extremeties - No edema, cyanosis or clubbing Hemo/lymphatic/immune no lymphadenopathy Neurological sleepy/lethargic, no focal neurological deficits. Psychiatry flat affect OBJ DATA Labs CBC & Chem 7: 08/17/20 04:57 08/17/20 04:57 Labs: Abnormal Lab Results 08/17/20 08/17/20 08/16/20 04:57 04:57 05:35 WBC Hgb 8.9 L Hct 29.7 L MCH 24.5 L MCHC 30.0 L Gran % Lymph % (Auto) Gran # Lymph # (Auto) Glucose 112 H Calcium 8.3 L NT-Pro-B Natriuret Pep Albumin 3.0 L Albumin/Globulin Ratio 0.9 L 08/16/20 08/15/20 05:35 08:14 WBC 11.5 H Hgb 9.3 L Hct 30.9 L MCH 24.3 L MCHC 30.1 L Gran % 80.3 H Lymph % (Auto) 12.5 L Gran # 9.21 H Lymph # (Auto) 1.43 L Glucose Calcium NT-Pro-B Natriuret Pep 3824.0 H Albumin Albumin/Globulin Ratio Meds: Medications Acetaminophen (Tylenol) 650 mg PO Q6HP PRN; Protocol PRN Reason: Per Pain Protocol/Fever > 101 Albuterol/Ipratropium (Duoneb) 3 ml NEB Q4HRT PRN PRN Reason: Shortness Of Breath Cefepime HCl (Maxipime) 2 gm IV Q8H [facility]; Protocol Last Admin: 08/17/20 22:47 Dose: 2 gm Documented by: Clonidine HCl (Catapres) 0.2 mg PO BID [facility] Last Admin: 08/17/20 21:05 Dose: 0.2 mg Documented by: Docusate Sodium (Colace) 100 mg PO BID [facility] Last Admin: 08/17/20 21:05 Dose: 100 mg Documented by: Estradiol (Estrace) 0.25 mg PO DAILY [facility] Guaifenesin (Robitussin Dm) 5 ml PO Q6HP PRN PRN Reason: Cough Sodium Chloride (Sodium Chloride 0.9%) 1,000 mls @ 75 mls/hr IV .[id number] [facility] Last Admin: 08/17/20 18:40 Dose: 75 mls/hr Documented by: Vancomycin HCl 1,500 mg/ (Sodium Chloride) 500 mls @ 333.3 mls/hr IV Q12H [facility] Last Admin: 08/17/20 21:04 Dose: 333.3 mls/hr Documented by: Omeprazole (Prilosec) 20 mg PO ACB [facility] Ondansetron HCl (Zofran) 4 mg IV Q6HP PRN PRN Reason: Nausea And Vomiting Oxycodone HCl (Roxicodone) 5 mg PO Q8HP PRN; Protocol PRN Reason: Per Pain Protocol Last Admin: 08/17/20 21:05 Dose: 5 mg Documented by: Sodium Chloride (Saline Flush) 10 ml IV Q8 [facility] Last Admin: 08/17/20 20:13 Dose: 10 ml Documented by: Vancomycin HCl (Vancomycin Per Pharmacy) 1 order IV [facility]; Protocol A/P Narrative A/P Narrative: 1. Acute hypoxic respiratory failure Pulse ox Oxygen therapy to keep oxygen saturations greater than 92%. 2. Pneumonia, [facility]? CT of the chest showed pneumonia and negative for PE Last week she was hospitalized in the hospital for cholecystitis and stayed in the hospital for 3 days. Blood culture no growth Sputum culture no growth MRSA screen negative COVID-19 PCR negative Cefepime 2 g every 8 hours Vancomycin, dosing by pharmacy 3. Acute cholecystitis, s/p Laparoscopic cholecystectomy by Dr. Choi on 08/12/2020 Surgical site no infection sign 4. Elevation of liver enzymes Could result from previous cholecystitis and cholecystectomy Repeat her liver function in morning 5. HTN Continue clonidine 6. Anxiety Continue aripirazole 5 mg daily, bisoprolol 5 mg daily (discontinued), clonidine 0.2 mg twice daily, fexofenadine 180 mg daily as needed (discontinued) and oxycodone (she is on 5 to 10 mg of every 4 hours as needed. I decreased it to 5 mg every 8 hours as needed). I feel that medications are too much but patient would like to have them. closely monitor 7. DVT prophylaxis: SCD. No pharmacological DVT prophylaxis now due to hemoptysis. 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
[2020-08-18] MEDS: 0.9 % SODIUM CHLORIDE 1,000 ML IV SCH ×3 (03:27→16:22)
[2020-08-18] MEDS: CEFEPIME 2 GM VIAL IV SCH ×2 (05:56→16:21)
[2020-08-18] MEDS: 0.9 % SODIUM CHLORIDE 10 ML SYRINGE IV SCH ×2 (05:57→16:22)
[2020-08-18] MEDS ORDERED: OMEPRAZOLE 20 MG CAPSULE PO SCH (07:30)
[2020-08-18 07:40] LABS: Basophils # (Auto) 0.02 K/mcL (0.00-0.30); Basophils % (Auto) 0.3 % (0.0-2.0); Eosinophils # (Auto) 0.14 K/mcL (0.00-0.70); Eosinophils % (Auto) 2.1 % (0.0-7.0); Granulocytes % (Auto) 58.8 % (38.0-78.0); Hematocrit 28.2 % (34.1-44.9); Hemoglobin 8.5 g/dL (11.2-15.7); Lymphocytes # (Auto) 2.13 K/mcL (1.50-4.80); Lymphocytes % (Auto) 32.7 % (15.5-49.0); Mean Cell Volume 82.5 fL (80.0-100.0); Mean Corpuscular HGB Conc 30.1 g/dL (31.0-36.0); Mean Platelet Volume 9.9 fL (7.4-10.4); Monocytes % (Auto) 6.1 % (1.0-12.0); Platelet Count 241 K/mcL (140-440); RBC 3.42 M/mcL (3.59-5.38); Red Cell Distribution Width 13.8 % (11.5-14.5); WBC 6.5 K/mcL (4.50-11.00)
[2020-08-18 07:54] LABS: ALT/SGPT 33 U/l (0-40); AST/SGOT 20 U/l (0-37); Albumin 2.8 gm/dL (3.2-5.2); Albumin/Globulin Ratio 0.9 (1.0-2.3); Alkaline Phosphatase 79 U/L (39-117); Bilirubin,Total 0.3 mg/dL (0.0-1.0); Blood Urea Nitrogen 10 mg/dl (6-20); Calcium 8.3 mg/dl (8.6-10.4); Carbon Dioxide 25 mmol/L (22-30); Chloride 104 mmol/L (96-108); Glomerular Filtration Rate 109; Glucose 102 mg/dL (70-105)
[2020-08-18] MEDS ORDERED: ESTRADIOL 1 MG TABLET PO SCH (09:00)
[2020-08-18] MEDS ORDERED: ARIPIPRAZOLE 5 MG TABLET PO SCH (09:00)
[2020-08-18] MEDS: VANCOMYCIN 1,500 MG in 0.9 % SODIUM CHLORIDE 500 ML IV SCH (09:17)
[2020-08-18] MEDS: DOCUSATE SODIUM 100 MG CAPSULE PO SCH (09:28)
[2020-08-18] MEDS: cloNIDine HCL 0.1 MG TABLET PO SCH (09:28)
--- NOTE | 2020-08-18 10:31 | Discharge Summary ---
Discharge Provider Provider Patient information: Note initiated : 08/18/20 at 10:28 am Service Date, if different from initiated Date: [] Patient: Nicole Lipscomb 45 y/o F admitted on 08/15/20 for abdominal pain and coughing up blood. Chief Complaint: [] Date of admission: 08/15/20 02:44 Discharge date: 08/18/20 Primary care physician: Jo-Ann Lin Consults: 08/15/20 07:49 Consult to Physician [CONS] Routine Comment: Consulting Provider: Soto Pond Reason For Exam: Physician to Consult Discharge Meds Discharge Medications Home Medications clonidine HCl 0.2 mg PO BID 02/19/19 [History Confirmed 08/15/20 Last Taken 08/13/20 12:00] aripiprazole 5 mg PO DAILY 10/31/19 [History Confirmed 08/15/20 Last Taken 08/13/20 12:00] estradiol 0.25 mg PO DAILY 08/12/20 [History Confirmed 08/15/20 Last Taken 08/13/20 12:00] omeprazole 20 mg capsule,delayed release 20 mg PO QDAY cap 08/12/20 [History Confirmed 08/15/20 Last Taken 08/13/20 12:00] levofloxacin 750 mg PO Q24H #5 tab 08/18/20 [Rx Last Taken Unknown] COURSE Hospital Course Hospital course: 1. Acute hypoxic respiratory failure Pulse ox Oxygen therapy to keep oxygen saturations greater than 92%. She is now on RM with good sat 2. Pneumonia, [facility]? CT of the chest showed pneumonia and negative for PE Last week she was hospitalized in the hospital for cholecystitis and stayed in the hospital for 3 days. Blood culture no growth Sputum culture no growth MRSA screen negative COVID-19 PCR negative will discontinue Cefepime 2 g every 8 hours and Vancomycin, dosing by pharmacy will discharge her on levaquin x 5 days. 3. Acute cholecystitis, s/p Laparoscopic cholecystectomy by Dr. Choi on 08/12/2020 Surgical site no infection sign f/u with her surgeon 4. Elevation of liver enzymes Could result from previous cholecystitis and cholecystectomy Repeat her liver function in morning Resolved 5. HTN Continue home meds Controlled 6. Anxiety Continue aripirazole 5 mg daily, bisoprolol 5 mg daily (discontinued), clonidine 0.2 mg twice daily, fexofenadine 180 mg daily as needed (discontinued) and oxycodone (she is on 5 to 10 mg of every 4 hours as needed. I decreased it to 5 mg every 8 hours as needed). I feel that medications are too much but patient would like to have them. closely monitor f/u with psychiatry Ms. Lipsocmb is a 45 year old F with a history of hypertension and anxiety who presented to the ER due to shortness of breath for 2 to 3 days. As per patient, patient had a cholecystitis for which she underwent cholecystectomy on August 12, 2020. She stayed in the hospital for 3 days and then was discharged home. 2 to 3 days ago patient started to have shortness of breath associated with cough with some amount of sputum. She does not know the color of the sputum but she noticed some blood in the sputum. She also complains of mild nausea, fever and chills sometimes. Otherwise she denies headache, dizziness, chest pain, abdominal pain, or dysuria. In the ER, imaging showed pneumonia. 1 dose of cefepime and vancomycin were given in the ER. 08/16 Patient is sleepy and lethargic. Denies headache, dizziness, fever or chills. Afebrile, oxygen saturation good on 2 L. WBC 11.5. Repeated COVID-19 negative Repeat blood culture Discontinued Buspirone. Change oxycodone to 5 mg every 8 hours as needed formal every 6 hours as needed. Upgraded to PCU. BNP 3824 -echocardiogram 08/17 Today patient mental status significantly improved. When I saw this patient in her room, she was sitting on bed and can talk with me. I advised her not to take too much psych and pain medication in the future. She agreed with the advice. This morning she was 2 L oxygen. She is on room air this afternoon with good saturation. 08/18 Today she does not have any complaints. Vital signs are stable. She is now on room air with good saturation. She can walk in the woods without problems. She will be discharged home to follow with PCP, surgeon and psychiatrist. Her hemoglobin has been low. She needs to repeat CBC in 3 days. She will be discharged on Levaquin. Please do more exercise. Psych antipain medication need to be adjusted by psychiatrist. Call PCP for medication. Discharge diagnosis: Acute hypoxic respiratory failure, Pneumonia Time Spent with Patient Time attestation: Total time spent providing and/or coordinating discharge services: EXAM Constitutional Vitals: Temp Pulse Resp BP Pulse Ox 98.4 F 70 18 146/83 98 08/18/20 08:00 08/18/20 08:00 08/18/20 08:00 08/18/20 08:00 08/18/20 08:00 Additional findings Additional findings: General - no acute distress Eyes - PERRLA, EOM intact ENT no rhinorrhea, no noticeable or palpable swelling, no redness or rash around throat or on face Neck supple, no JVD, no thyromegaly Respiratory: Lungs -coarse BS, no use of accessary muscles. Cardiovascular - RRR no m/r/g, GI - Normal bowel sounds, no distended, soft. Extremeties - No edema, cyanosis or clubbing Hemo/lymphatic/immune no lymphadenopathy Neurological A+O x 3, no focal neurological deficits. Psychiatry flat affect Discharge Data Data Completed and Pending Labs on day of discharge: Labs from last 24 hours 08/18/20 08/18/20 05:37 05:37 WBC 6.5 RBC 3.42 L Hgb 8.5 L Hct 28.2 L MCV 82.5 MCH 24.9 L MCHC 30.1 L RDW 13.8 Plt Count 241 MPV 9.9 Gran % 58.8 Lymph % (Auto) 32.7 [place] % (Auto) 6.1 Eos % (Auto) 2.1 Baso % (Auto) 0.3 Gran # 3.83 Lymph # (Auto) 2.13 [place] # (Auto) 0.40 Eos # (Auto) 0.14 Baso # (Auto) 0.02 Sodium 138 Potassium 3.3 Chloride 104 Carbon Dioxide 25 Anion Gap 9.0 BUN 10 Creatinine 0.6 GFR Calculation 109 Glucose 102 Calcium 8.3 L Total Bilirubin 0.3 AST 20 ALT 33 Alkaline Phosphatase 79 Total Protein 5.8 L Albumin 2.8 L Globulin 3.0 Albumin/Globulin Ratio 0.9 L Preliminary micro results at discharge 08/15/20 08:23 Blood Culture - Preliminary Blood 08/15/20 08:14 Blood Culture - Preliminary Blood Discharge Plan Patient/Caregiver Discharge Instructions Activity: increase activity as tolerated Diet: Regular Diet Activity Restrictions/Additional Instructions: Follow with the PCP, surgeon and psychiatrist. Repeat CBC in 3 days and complete your course of antibiotics. Prescriptions: New levofloxacin 750 mg tablet 750 mg PO Q24H Qty: 5 RF: 0 Continued omeprazole 20 mg capsule,delayed release(DR/EC) 20 mg PO QDAY RF: 0 clonidine HCl 0.2 MG tablet 0.2 mg PO BID RF: 0 aripiprazole 5 MG tablet 5 mg PO DAILY RF: 0 estradiol 0.25 mg PO DAILY RF: 0 Discontinued buspirone 5 MG tablet 5 mg PO DAILY RF: 0 fexofenadine 180 MG tablet 180 mg PO DAILYP PRN (Reason: Congestion) Qty: 30 RF: 0 ondansetron 4 mg tablet,disintegrating 4 mg PO Q4HP PRN (Reason: Nausea) RF: 0 acetaminophen [Tylenol] 325 mg Tablet 650 mg PO Q6HP Qty: 30 RF: 0 oxycodone 5 mg Tablet 5 - 10 mg PO Q4HP PRN (Reason: Per Pain Protocol) Qty: 15 RF: 0 Other Ambulatory Orders: Complete Blood Count (Routine) Timeframe: 3 Days Facility: [facility] - Location: Laboratory Ordered By: Soto Pond Follow Up Plan Follow up with: Jo-Ann Lin ARNP [Primary Care Provider] - Unknown [Outside] (Follow with PCP in 3 days, surgeon within 1 week and a psychiatrist within 1 week.) Patient Disposition: Home, Self-Care Discharge Orders: Discharge Order (Routine); Ordered 08/18/20 Ordered By: Soto Pond QUALITY VTE Deep Vein Thrombosis/Pulmonary Embolism Present on Admission: No
== END 2020-08-18 12:58 | disposition home or self-care (01) | DRG 189 ==
LOC: ED 20:55 → MEDSUR 08-15 02:44 → ICU 08-16 11:50 → MEDSUR 08-17 16:06
PROVIDERS: ADMIT Internal Medicine; ATTEND Internal Medicine